=== PATIENT | male | born 1955 | race Caucasian/White ===

== ENCOUNTER 2016-12-25 05:08 | Emergency (ER) | payer MEDICARE, MEDICAID ==
[2016-12-25] MEDS ORDERED: HYDROCODONE/APAP 10/325 TABLET PO ONE ×2 (05:24→06:46)
--- NOTE | 2016-12-25 05:25 | Emergency Department Record ---
History of Present Illness - General Chief Complaint: Fall Injury Stated Complaint: FALL Time Seen by Provider: 12/25/16 05:19 Source: Patient Mode of Arrival: EMS Limitations: No limitations - History of Present Illness Initial Comments: The patient is here due to L shoulder and rib pain. The patient states he tripped and fell one hour ago and injured his L ribs and shoulder. He had to call EMS to get here. There was no reported head injury, neck pain, or any LOC. The patient does take [place] chronically and states he just ran out of them today. MD Complaint: Fall Onset/Timin -: Hour(s) Fall From: Standing When Fall Occurred: Just prior to arrival Fall Witnessed: No Place Fall Occurred: Home Loss of Consciousness: None Prolonged Down Time?: No Symptoms Prior to Fall: None Severity: Severe Severity scale (1-10): 10 Quality: Aching Context: Tripped/slipped - Related Data Home Medications Medication Instructions Recorded Confirmed Last Taken Alprazolam [Xanax] 1 mg PO TID 12/25/16 12/25/16 Unknown Hydrocodone/Acetaminophen [[place] 1 tab PO Q8H PRN 12/25/16 12/25/16 Unknown 10mg/325mg] Loratadine [Loratadine] 10 mg PO DAILY 12/25/16 12/25/16 Unknown Omeprazole [Prilosec] 20 mg PO DAILY 12/25/16 12/25/16 Unknown Synthroid (Uknown Dose) 12/25/16 Unknown Temazepam [Restoril] 30 mg PO QHS 12/25/16 12/25/16 Unknown Allergies Allergy/AdvReac Type Severity Reaction Status Date / Time prednisone AdvReac RAPID Verified 12/25/16 05:11 HEART RATE Travel Screening - Travel/Exposure Within Last 30 Days Have you traveled within the last 30 days?: No Review of Systems Constitutional: Denies: Chills, Fever Eyes: Denies: Eye discharge ENT: Denies: Congestion Respiratory: Denies: Cough, Hemoptysis Past Medical History - SOCIAL HISTORY Smoking Status: Never smoker Alcohol Use: None Drug Use: None - RESPIRATORY Hx Respiratory Disorders: Yes Hx Asthma: Yes - CARDIOVASCULAR Hx Cardio Disorders: Yes Hx Cardiac Cath: Yes - NEURO Hx Neuro Disorders: No - GI Hx GI Disorders: Yes Hx Reflux: Yes - Hx Genitourinary Disorders: No - ENDOCRINE Hx Endocrine Disorders: Yes Hx Thyroid Disease: Yes - MUSCULOSKELETAL Hx Musculoskeletal Disorders: No - PSYCH Hx Psych Problems: No - HEMATOLOGY/ONCOLOGY Hx Hematology/Oncology Disorders: No Family Medical History Any Significant Family History?: No Physical Exam - General General Appearance: Alert, Oriented x3, Cooperative, No acute distress - Head Head exam: Atraumatic, Normocephalic, Normal inspection - Eye Eye exam: Normal appearance, PERRL - Neck Neck exam: Normal inspection, Full ROM. negative: Tenderness - Respiratory Respiratory exam: Normal lung sounds bilaterally, Chest wall tenderness (There is diffuse anterior L rib tenderness.). negative: Respiratory distress - Cardiovascular Cardiovascular Exam: Regular rate, Normal rhythm, Normal heart sounds - GI/Abdominal GI/Abdominal exam: Soft, Normal bowel sounds. negative: Guarding, Rigid, Tenderness - Extremities Extremities exam: Normal inspection, Tenderness (There is tenderness to the L shoulder.). negative: Full ROM - Neurological Neurological exam: Alert. negative: Motor sensory deficit Course Vital Signs 12/25/16 05:13 Temperature 98.0 F Pulse Rate 71 Respiratory 18 Rate Blood Pressure 144/58 Pulse Ox 97 - Reevaluation(s) Reevaluation #1: The patient is doing OK at this time. I did explain the xray and CT reports with the patient. He is to use the arm sling at all times and to sleep sitting up at a 45 degree angle. The patient is to F/U with Dr. [facility] in 2 days. He also is to get to [facility] today to get his chronic [place] script filled. 12/25/16 07:01 Medical Decision Making - Data Complexity MDM Data: X-Ray Ordered and/or Reviewed - Radiology Data Radiology results: Report reviewed (Chest CT: Neg for any rib fx's but min displaced L humerus fx.) Disposition Disposition: Discharge Clinical Impression: Humeral head fracture Qualifiers: Encounter type: initial encounter Fracture type: closed Laterality: left Qualified Code(s): S42.292A - Other displaced fracture of upper end of left humerus, initial encounter for closed fracture Disposition: Home, Self-Care Condition: (2) Stable Instructions: Arm Fracture in Adults (ED) Additional Instructions: Please take your home [place] for pain and wear your arm sling at all times. Please sleep sitting up at a 45 degree angle. Please see Dr[address] Long [facility] the [facility] in 2 days. Use ice to the L shoulder. Return to the ER for any problems or new issues. Referrals: [facility] [place] [facility] [Provider Group] Forms: Patient Portal Access Time of Disposition: 07:07
[2016-12-25] MEDS ORDERED: MORPHINE SULFATE 5 MG/ML PFS IM ONE (06:40)
[2016-12-25] MEDS ORDERED: ONDANSETRON 4 MG ODT TABLET SL ONE (06:40)
== END 2016-12-25 07:41 | disposition home or self-care (01) ==
LOC: ER 05:08
DX: S42.252A Displaced fracture of greater tuberosity of left humerus, initial encounter for closed fracture (principal); R07.81 Pleurodynia; W01.0XXA Fall on same level from slipping, tripping and stumbling without subsequent striking against object, initial encounter; Y92.009 Unspecified place in unspecified non-institutional (private) residence as the place of occurrence of the external cause
CPT/HCPCS: 99283; 96372; 99284; 73030; 71250; J3490; J2270